=== PATIENT | female | born 1950 | race Caucasian/White ===

== ENCOUNTER → 2020-11-07 | Outpatient (CLI) | payer MEDICARE, OTHER ==
[~2020-11-07] MED LIST: ALPRAZOLAM0.5 MG PO; CYANOCOBAL1000 MCG/1 INJ; DULERA 200 MCG8.8 GM INH; FLAGYL500 MG PO; IPRAT-ALBUT 0.5-3 ML INH; LEVAQUIN500 MG PO; LOTEMAX3.5 GM OP; PREDNISONE 5 MG5 MG PO; PREVACID30 MG PO; SINGULAIR10 MG PO; SYNTHROID88 MCG PO; TRAZODONE HCL100 MG PO; VENTOLIN HFA 66.7 GM INH; VITAMIN D250000 UNIT PO; VOLTAREN100 GM TP
== END ==
LOC: KOH-I 15:31
DX: R09.1 Pleurisy (principal); I51.7 Cardiomegaly
CPT/HCPCS: 71046

== ENCOUNTER → 2021-01-23 | Outpatient (CLI) | payer MEDICARE, OTHER | LOC: HEART 5 13:53 | DX: R00.0 Tachycardia, unspecified (principal) ==

== ENCOUNTER → 2021-09-17 | Outpatient (CLI) | payer MEDICARE, OTHER | LOC: RAD 08:06 | DX: K21.00 Gastro-esophageal reflux disease with esophagitis, without bleeding (principal); K44.9 Diaphragmatic hernia without obstruction or gangrene | CPT/HCPCS: 74240 ==